=== PATIENT | female | born 1975 | race Caucasian/White ===

== ENCOUNTER 2018-07-02 02:20 | Emergency (ER) | payer SELFPAY ==
[~2018-07-02] VITALS: Ht 162.6 cm; Wt 90.7 kg
[2018-07-02 02:44] VITALS: BP 118/70
[2018-07-02] MEDS ORDERED: ONDANSETRON HCL/PF 4 MG/2 ML VIAL ONE (03:14)
[2018-07-02] MEDS ORDERED: IBUPROFEN 600 MG TABLET PO ONE ×2 (03:14→03:30)
[2018-07-02] MEDS ORDERED: MAG HYDROX/AL HYDROX/SIMETH 30 ML UDC ONE (03:15)
[2018-07-02] MEDS ORDERED: ONDANSETRON 4 MG TAB.RAPDIS ONE (03:19)
--- NOTE | 2018-07-02 03:25 | NUR ---
PT DENIES OF BEING HOMELESS.
[2018-07-02] MEDS ORDERED: MAG HYDROX/AL HYDROX/SIMETH 30 ML UDC PO ONE (03:30)
[2018-07-02] MEDS ORDERED: ONDANSETRON HCL/PF 4 MG/2 ML VIAL IM ONE (03:30)
[2018-07-02] MEDS ORDERED: ONDANSETRON 4 MG TAB.RAPDIS SL ONE (03:30)
== END 2018-07-02 03:39 | disposition home or self-care (01) ==
LOC: ER 02:24
DX: R10.13 Epigastric pain (principal)
CPT/HCPCS: 99284; Q0162; J2405

== ENCOUNTER 2018-07-18 23:23 | Emergency (ER) | payer SELFPAY ==
[~2018-07-18] VITALS: Ht 162.6 cm; Wt 81.6 kg
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
--- NOTE | 2018-07-19 00:03 | NUR ---
PT'S FACE IS COVERED WITH THEATER TYPE MAKE UP - PINK WITH BLACK SPOTS.
--- NOTE | 2018-07-19 00:25 | NUR ---
XRAY IS AT THE BEDSIDE.
--- NOTE | 2018-07-19 01:55 | NUR ---
PT DENIES BEING HOMELESS.
--- NOTE | 2018-07-19 01:57 | NUR ---
PT REFUSED TO LEAVE. PT STATED THAT SHE WILL LEAVE WHEN SHE WANTS TO LEAVE. PT STATED THAT SHE DID NOT WALK INTO THE ER. VALE GOYAL/TRIAGE SPOKE TO THE PT AND TOLD HER THAT SHE AMBULATED TO BED 14 WITH HIM. PT THEN STATED THAT SHE IS NOT READY TO LEAVE. SECURITY WAS CALLED.
--- NOTE | 2018-07-19 01:57 | NUR ---
Patient discharged to home in stable condition. Written and verbal after care instructions given. Patient verbalizes understanding of instruction AND RX. PT AMBULATED OUT WITH A SLOW STEADY GAIT. VSS. NAD NOTED.
--- NOTE | 2018-07-19 01:59 | NUR ---
SECURITY AND [employer] ARRIVED AT THE BEDSIDE. PT AMBULATED OUT WITH A STEADY GAIT.
[2018-07-19] MEDS ORDERED: IBUPROFEN 600 MG TABLET PO ONE (02:00)
[2018-07-19 02:02] VITALS: BP 104/56
== END 2018-07-19 01:59 | disposition home or self-care (01) ==
LOC: ER 23:30
DX: M25.532 Pain in left wrist (principal); M79.642 Pain in left hand; M25.562 Pain in left knee; M25.572 Pain in left ankle and joints of left foot; W18.39XA Other fall on same level, initial encounter; Y93.89 Activity, other specified; Y92.89 Other specified places as the place of occurrence of the external cause; Y99.8 Other external cause status
CPT/HCPCS: 73110; 73130-TC; 73564-TC; 73610-TC

== ENCOUNTER 2018-07-19 07:23 | Emergency (ER) | payer SELFPAY ==
[~2018-07-19] VITALS: Ht 162.6 cm; Wt 56.7 kg
--- NOTE | 2018-07-19 07:25 | NUR ---
called in waiting room. no answer.
--- NOTE | 2018-07-19 07:40 | NUR ---
CAME L SIDED CHEST AREA PAIN , PRESSURE-LIKE X "0700 AM", ALSO C/O R BACK AREA. PT AOx4, NAD NOTED, TO ER BED 14, HOOKED TO MONITOR, CHANGED TO GOWN, PROVIDED W WARM BLANKET, AWAITING MD TABARES.
--- NOTE | 2018-07-19 07:45 | NUR ---
PT DENIES HOMELESSNESS. ADDRESS GIVEN [address] [place] [id number]. STATED THAT SHE LIVES W .
--- NOTE | 2018-07-19 08:53 | NUR ---
Social service consult requested by Dr. Llamas for homelessness. Pt. is a 42 year old female who came to [facility] complaining of chest pain. Pt. was here at [facility] ED yesterday as well. SW met with pt. bedside. Pt. was laying in bed with sunglasses on. Pt. appears dirty and disheveled. After SW introduced herself, pt. immediately states she does not want to speak or needs a social services aide. Pt. refused to speak to SW and requested for breakfast and sweatshirt. Pt. was given breakfast and a sweatshirt. Pt. denied being homeless to her nurse. No other social service needs are requested at this time. SW is available, if needed.
--- NOTE | 2018-07-19 09:10 | NUR ---
URINE SAMPLE COLLECTED AND SENT TO LAB.
--- NOTE | 2018-07-19 10:22 | NUR ---
PT IN BED AWAKE AND COMFORTABLE, HOOKED TO MONITOR, STABLE VS, DENIES CHEST PAIN AT THIS TIME. MADE MD AWARE.
--- NOTE | 2018-07-19 11:06 | NUR ---
PT OK TO BE DISCHARGED BUT NEEDS PANTS. MADE ASSOCIATE MANAGER AWARE.
--- NOTE | 2018-07-19 12:10 | NUR ---
PROVIDED W SANDWICH AND WATER. PT TOLERATING PO WELL.
--- NOTE | 2018-07-19 12:50 | NUR ---
Pt provided w pants. Patient discharged to home in stable condition. Pt wearing jacket, pants and slippers. AOx 4, Ambulatory with steady gait. Written and verbal after care instructions given. Patient verbalizes understanding of instruction.
[2018-07-19 13:16] VITALS: BP 128/84
== END 2018-07-19 13:17 | disposition home or self-care (01) ==
LOC: ER 07:23
DX: R07.89 Other chest pain (principal)
CPT/HCPCS: 71045-TC; 84703-TC

== ENCOUNTER 2019-01-15 23:31 | Emergency (ER) | payer SELFPAY ==
[~2019-01-15] VITALS: Ht 170.2 cm; Wt 81.6 kg
--- NOTE | 2019-01-15 23:31 | NUR ---
TO WAITING ROOM AWATING FOR BED AVAILABILITY
[2019-01-15 23:33] VITALS: BP 134/69
--- NOTE | 2019-01-16 01:15 | NUR ---
ATTEMPTED TO ROOM PT. PT ASLEEP IN WAITING ROOM, WOKE UP TO PUT IN ROOM AND PT STATES "I NEED A FEW MINUTES"
--- NOTE | 2019-01-16 02:46 | NUR ---
PT STILL SLEEPING IN WAITING ROOM, DOES NOT WAKE UP WHEN ATTEMPTING TO PLACE INTO ROOM
--- NOTE | 2019-01-16 03:10 | NUR ---
CALLED PT FROM WAITING ROOM, PT REMAINS ASLEEP.
--- NOTE | 2019-01-16 04:22 | NUR ---
PT AWAKE AND WANTS TO BE SEEN, WHEN PT CALLED PT VERBALLY ABUSIVE TOWARDS STAFF, PT WALKED OUT OF ER.
== END 2019-01-16 04:26 | disposition left against medical advice (07) ==
LOC: ER 23:31
DX: Z53.21 Procedure and treatment not carried out due to patient leaving prior to being seen by health care provider (principal); R10.9 Unspecified abdominal pain

== ENCOUNTER 2019-01-25 18:01 | Emergency (ER) | payer SELFPAY ==
[~2019-01-25] VITALS: Ht 162.6 cm; Wt 124.3 kg
--- NOTE | 2019-01-25 18:14 | NUR ---
[id number], HOMELESS, C/O LOWER BACK PAIN x 3 DAYS, DYSURIA, TO ER BED 14, HOOKED TO MONITOR, CHANGED TO HOSPITAL GOWN, AWAITING MD TABARES.
--- NOTE | 2019-01-25 18:16 | NUR ---
PA FOSTER AT BEDSIDE
[2019-01-25] MEDS ORDERED: PHENAZOPYRIDINE HCL 200 MG TABLET ONE (18:29)
[2019-01-25] MEDS ORDERED: ACETAMINOPHEN ES 500 MG TABLET ONE (18:29)
[2019-01-25] MEDS ORDERED: PHENAZOPYRIDINE HCL 200 MG TABLET PO ONE (18:30)
[2019-01-25] MEDS ORDERED: ACETAMINOPHEN ES 500 MG TABLET PO ONE (18:30)
--- NOTE | 2019-01-25 18:32 | NUR ---
[employer] AT BEDSIDE FOR BLOOD DRAW.
--- NOTE | 2019-01-25 18:47 | NUR ---
URINE SAMPLE SENT TO LAB
--- NOTE | 2019-01-25 18:47 | NUR ---
NOZZLE TENDER UNABLE TO DRAW BLOOD. MADE RED WYATT AWARE
[2019-01-25 18:55] LABS: APPEARANCE,URINE Clear (CLEAR); BILIRUBIN,URINE Negative (NEGATIVE); BLOOD, URINE Trace-intact Ery/uL (NEGATIVE); COLOR,URINE Yellow (YELLOW); KETONES,URINE Negative (NEGATIVE); LEUKOCYTE ESTERASE ,URINE Negative (NEGATIVE); NITRITE, URINE Negative (NEGATIVE); PH,URINE 5.5 (5.0-8.0); PROTEIN,URINE Negative (NEGATIVE); UGLUCOSE Negative (NEGATIVE); UROBILINOGEN,URINE 0.2 EU/dL (0.2)
[2019-01-25 19:00] LABS: BACTERIA,URINE Rare /HPF (None Seen); SQUAMOUS EPITHELIAL CELL,UR Few /HPF (None Seen); WBC,URINE NONE SEEN /HPF (0-3)
--- NOTE | 2019-01-25 19:02 | NUR ---
2ND ATTEMPT TO DRAW BLOOD FROM PATIENT BY PRESSURE WELDER. ABLE TO COLLECT BLOOD SAMPLE.
[2019-01-25 19:04] LABS: BASOPHILS # (AUTO) 0.1 /CMM (0.0-0.2); BASOPHILS % (AUTO) 1.3 % (0.0-2.0); EOSINOPHILS % (AUTO) 4.6 % (0.0-6.0); HEMATOCRIT 32 % (33-45); HEMOGLOBIN 10.8 g/dL (11.5-14.8); LYMPHOCYTES # (AUTO) 2.4 /CMM (0.8-4.8); LYMPHOCYTES % (AUTO) 38.4 % (20.0-44.0); MEAN CORPUSCULAR HGB CONC 33 g/dl (31.0-36.0); MEAN CORPUSCULAR VOLUME 86 fL (82-100); MONOCYTES # (AUTO) 0.5 /CMM (0.1-1.30); MONOCYTES % (AUTO) 8.4 % (2.0-12.0); NEUTROPHILS % (AUTO) 47.3 % (43.0-81.0); PLATELET COUNT (AUTO) 248 /CMM (150-450); RED BLOOD CELL COUNT(AUTO) 3.79 MIL/uL (4.0-5.2); WHITE BLOOD COUNT (AUTO) 6.3 K/uL (4.3-11.0)
[2019-01-25 19:20] LABS: CALCIUM, SERUM 8.3 mg/dL (8.5-10.1); CREATININE 0.7 mg/dL (0.6-1.3); POTASSIUM 3.6 mmol/L (3.5-5.1)
--- NOTE | 2019-01-25 19:32 | NUR ---
REPORT GIVEN TO SHERRON COLLAZO FOR KHLOE
--- NOTE | 2019-01-25 21:05 | NUR ---
Patient discharged to home in stable condition. Written and verbal after care instructions given. Patient verbalizes understanding of instruction. Pt ambulatory with a steady gait. Pt provided with TAP card and homeless waiver signed by pt.
[2019-01-25 21:08] VITALS: BP 121/71
== END 2019-01-25 21:09 | disposition home or self-care (01) ==
LOC: ER 18:02
DX: R30.0 Dysuria (principal); M54.5 Low back pain; Z59.0 Homelessness
CPT/HCPCS: 36415; 80048-TC; 81000-TC; 84703-TC; 85025-TC

== ENCOUNTER 2019-01-25 23:00 | Emergency (ER) | payer SELFPAY ==
[~2019-01-25] VITALS: Ht 162.6 cm; Wt 79.4 kg
[2019-01-25 23:04] VITALS: BP 106/63
--- NOTE | 2019-01-25 23:05 | NUR ---
PT SEEN EARLIER TODAY FOR SAME COMPLAINT. NO ACUTE DISTRESS NOTED AT THIS TIME. PT WILL WAIT IN THE WAITING ROOM, PENDING BED AVAILABILITY
--- NOTE | 2019-01-26 01:44 | NUR ---
CALLED PT TO BE PLACED IN ROOM, WILL NOT WAKE UP FROM WAITING ROOM
--- NOTE | 2019-01-26 02:50 | NUR ---
CALLED PT TO PLACED IN ROOM, SLEEPING IN WAITING ROOM. REFUSING TO BE SEEN
== END 2019-01-26 03:50 | disposition home or self-care (01) ==
LOC: ER 23:02
DX: Z53.21 Procedure and treatment not carried out due to patient leaving prior to being seen by health care provider (principal); M54.9 Dorsalgia, unspecified; R11.2 Nausea with vomiting, unspecified

== ENCOUNTER 2019-01-30 22:12 | Emergency (ER) | payer SELFPAY ==
[~2019-01-30] VITALS: Ht 162.6 cm; Wt 124.3 kg
[2019-01-30 22:15] VITALS: BP 136/84
[2019-01-30] MEDS ORDERED: ACETAMINOPHEN ES 500 MG TABLET ONE (22:49)
[2019-01-30] MEDS ORDERED: IBUPROFEN 600 MG TABLET PO ONE (22:50)
[2019-01-30] MEDS: ACETAMINOPHEN 325 MG TABLET PO ONE (22:54)
[2019-01-30] MEDS: IBUPROFEN 600 MG TABLET PO ONE (22:54)
--- NOTE | 2019-01-30 23:55 | NUR ---
AFTER CARE INSTRUCTIONS WERE PROVIDED VERBALLY. AFTERCARE INSTRUCTIONS WERE NOT PRINTED DUE TO SYSTEMS BEING DOWN.
== END 2019-01-30 23:57 | disposition home or self-care (01) ==
LOC: ER 22:14
DX: R51 Headache (principal); R53.1 Weakness; Z59.0 Homelessness

== ENCOUNTER 2019-02-01 01:18 | Emergency (ER) | payer SELFPAY ==
[~2019-02-01] VITALS: Ht 162.6 cm; Wt 124.3 kg
[2019-02-01] MEDS ORDERED: ONDANSETRON 4 MG TAB.RAPDIS SL ONE (04:00)
[2019-02-01] MEDS ORDERED: MAG HYDROX/AL HYDROX/SIMETH 30 ML UDC PO ONE (04:00)
[2019-02-01] MEDS ORDERED: LIDOCAINE VISCOUS 2% UD 15 ML UDC MM ONE (04:00)
[2019-02-01] MEDS ORDERED: LIDOCAINE VISCOUS 2% UD 15 ML UDC ONE (04:13)
[2019-02-01] MEDS ORDERED: MAG HYDROX/AL HYDROX/SIMETH 30 ML UDC ONE (04:13)
[2019-02-01] MEDS ORDERED: ONDANSETRON 4 MG TAB.RAPDIS ONE (04:14)
--- NOTE | 2019-02-01 04:19 | NUR ---
BRYANNA FROM STREET. TO ER BED 13. AAOX4. NO RESP DISTRESS NOTED. AMBULATORY ON STEADY GAIT. C/O EPIGASTRIC PAIN X 6 HRS SECURITY INTERN. NON RADIATING, PAIN IS CRAMPING SENSATION. PT REPORTS SHE HAD AN EPISODE OF VOMMITING AND REPORT NAUSEA. MD WAS AT BEDSIDE FOR EVAL. ORDERS RECEIVED NOTED AND CARRIED OUT.
--- NOTE | 2019-02-01 04:19 | NUR ---
PHLEB AT BEDSIDE FOR BLOOD DRAW
[2019-02-01 04:44] LABS: BASOPHILS # (AUTO) 0.1 /CMM (0.0-0.2); BASOPHILS % (AUTO) 1.9 % (0.0-2.0); HEMATOCRIT 37 % (33-45); LYMPHOCYTES # (AUTO) 1.9 /CMM (0.8-4.8); LYMPHOCYTES % (AUTO) 32.2 % (20.0-44.0); MEAN CORPUSCULAR HGB CONC 33 g/dl (31.0-36.0); MEAN CORPUSCULAR VOLUME 87 fL (82-100); MONOCYTES # (AUTO) 0.5 /CMM (0.1-1.30); MONOCYTES % (AUTO) 8.9 % (2.0-12.0); PLATELET COUNT (AUTO) 234 /CMM (150-450); RED BLOOD CELL COUNT(AUTO) 4.25 MIL/uL (4.0-5.2); WHITE BLOOD COUNT (AUTO) 5.8 K/uL (4.3-11.0)
[2019-02-01 04:52] LABS: CALCIUM, SERUM 8.2 mg/dL (8.5-10.1); CREATININE 0.7 mg/dL (0.6-1.3); POTASSIUM 3.8 mmol/L (3.5-5.1)
[2019-02-01 04:57] LABS: ALBUMIN 3.2 g/dL (3.4-5.0); BILIRUBIN,DIRECT 0.1 mg/dL (0.0-0.2); BILIRUBIN,TOTAL 0.2 mg/dL (0.2-1.0); TOTAL PROTEIN, SERUM 6.7 g/dL (6.4-8.2)
[2019-02-01 06:21] VITALS: BP 138/75
== END 2019-02-01 06:21 | disposition home or self-care (01) ==
LOC: ER 01:24
DX: R11.2 Nausea with vomiting, unspecified (principal); R10.13 Epigastric pain; E86.0 Dehydration; N28.9 Disorder of kidney and ureter, unspecified
CPT/HCPCS: 36415; 80048; 80076; 83690; 85025; 99284; Q0162

== ENCOUNTER 2019-02-03 05:50 | Emergency (ER) | payer SELFPAY ==
--- NOTE | 2019-02-03 06:13 | NUR ---
PATIENT WAS LEFT IN WAITING ROOM BY [employer]. CALLED PATIENT IN TO BE TRIAGED AND PATIENT REFUSED TO BE TRIAGED STATING "YOU ARE THREATENING MY LIFE AND I WANT TO LEAVE". PT LEFT TRIAGE ROOM. AWARE.
== END 2019-02-03 06:16 | disposition left against medical advice (07) ==
LOC: ER 05:50
DX: Z53.21 Procedure and treatment not carried out due to patient leaving prior to being seen by health care provider (principal)

== ENCOUNTER 2019-02-07 17:45 | Emergency (ER) | payer SELFPAY ==
[~2019-02-07] VITALS: Ht 162.6 cm; Wt 127.9 kg
[2019-02-07 17:45] VITALS: BP 139/88
--- NOTE | 2019-02-07 17:45 | NUR ---
"BIB RA FROM A LOCAL STORE,AMBULATORY, C/O OF BACK PAIN THIS PM" PT AAOX4, -SOB, NAD NOTED, VSS, PENDING MD TABARES
[2019-02-07] MEDS ORDERED: CYCLOBENZAPRINE 10 MG TABLET PO ONE (18:00)
[2019-02-07] MEDS ORDERED: KETOROLAC TROMETHAMINE INJ 60 MG/2 ML VIAL IM ONE ×2 (18:00→18:04)
[2019-02-07] MEDS ORDERED: CYCLOBENZAPRINE 10 MG TABLET ONE (18:05)
--- NOTE | 2019-02-07 19:24 | NUR ---
Patient given written and verbal discharge instructions. Patient verbalizes understanding of instructions. Patient is ambulatory with steady gait. Refuses offer of longterm placement. Patient given list of available shelters in surrounding area. Pt refused to sign.
== END 2019-02-07 19:26 | disposition home or self-care (01) ==
LOC: ER 17:46
DX: S39.012A Strain of muscle, fascia and tendon of lower back, initial encounter (principal); X50.1XXA Overexertion from prolonged static or awkward postures, initial encounter; Y93.01 Activity, walking, marching and hiking; Y92.89 Other specified places as the place of occurrence of the external cause; Y99.8 Other external cause status
CPT/HCPCS: 96372; 99283; J1885